=== PATIENT | male | born 1970 | race Hispanic/Latino ===

== ENCOUNTER 2019-04-04 18:29 | Emergency (ER) | payer OTHER ==
[2019-04-04] MEDS ORDERED: Ketamine 50 MG/ML (10ML VIAL) ONE (19:09)
[2019-04-04] MEDS ORDERED: PROPOFOL 20 ML ONE (19:13)
--- NOTE | 2019-04-04 20:49 | RAD ---
LEFT SHOULDER: 04/04/19 HISTORY: Post reduction. COMPARISON: Prereduction films. The anterior shoulder dislocation has been reduced. Humeral head appears normally positioned. AC join t normally aligned. No fracture identified. IMPRESSION: Post reduction left shoulder. POS: [facility]
== END 2019-04-04 20:54 | disposition home or self-care (01) ==
LOC: ERS 18:29
DX: S43.015A Anterior dislocation of left humerus, initial encounter (principal); W01.0XXA Fall on same level from slipping, tripping and stumbling without subsequent striking against object, initial encounter
CPT/HCPCS: 23650; 96360; 99152; J2704